=== PATIENT | female | born 1975 | race Two or more races ===

== ENCOUNTER 2017-03-11 14:04 | Emergency (ER) | payer OTHER ==
[~2017-03-11] VITALS: Ht 162.6 cm; Wt 72.6 kg
[2017-03-11] MEDS ORDERED: SODIUM CHLORIDE 0.9% 1,000 ML IVB ONE (14:21)
[2017-03-11] MEDS ORDERED: LORazepam 2MG/ML-1ML VIAL IV ONE (14:30)
[2017-03-11 15:03] LABS: Basophils # (auto) 0.1 uL; Basophils % (auto) 0.5 % (0.0-2.0); CONDITION AutoValidated; Eosinophils # (auto) 0.1 uL; Eosinophils % (auto) 0.5 % (0.0-7.0); Hematocrit 41.7 % (36.0-46.0); Hemoglobin 13.9 g/dL (12.2-16.2); Lymphocytes # (auto) 2.4 uL; Mean Corpuscular Hemoglobin 31.9 pg (28.0-32.0); Mean Corpuscular Hgb Conc. 33.5 g/dL (32.0-36.0); Mean Corpuscular Volume 95.4 fL (80.0-100.0); Mean Platelet Volume 8.6 fL (7.4-10.4); Monocytes # (auto) 0.4 uL; Monocytes % (auto) 3.8 % (0.0-12.0); Neutrophils # (auto) 6.9 uL; Neutrophils % (auto) 70.2 % (37.0-80.0); Platelet Count (auto) 307 10^3/uL (140-450); White Blood Cell 9.8 10^3/uL (4.4-10.8)
[2017-03-11] MEDS ORDERED: ONDANSETRON HCL 4 MG/2 ML VIAL IV ONE (15:15)
[2017-03-11 15:20] LABS: Acetaminophen < 2.0 ug/mL (10-30); Albumin 3.8 g/dL (3.4-5.0); BUN/Creatinine Ratio 18.3; Potassium 3.3 mmol/L (3.5-5.1); Salicylate < 1.7 mg/dL (2.8-20.0)
[2017-03-11 15:25] LABS: Bilirubin, Total 1.5 mg/dL (0.2-1.0); Total Protein 7.5 g/dL (6.4-8.2)
[2017-03-11 19:20] VITALS: BP 134/72
== END 2017-03-11 20:34 | disposition home or self-care (01) ==
LOC: EDBD 14:04 → ER 14:15
DX: F10.120 Alcohol abuse with intoxication, uncomplicated (principal); F41.9 Anxiety disorder, unspecified; F31.9 Bipolar disorder, unspecified
CPT/HCPCS: 36415; 80053; 80307; 80320; 80329; 85025; 94761; 96361; 96374; 96375; 99285; J2060; J2405; J7030

== ENCOUNTER 2017-04-15 19:56 | Emergency (ER) | payer OTHER ==
[~2017-04-15] VITALS: Ht 170.2 cm; Wt 77.1 kg
[2017-04-15 20:00] VITALS: BP 106/82
[2017-04-15 21:12] LABS: Basophils # (auto) 0 uL; Basophils % (auto) 0.7 % (0.0-2.0); CONDITION Y; Eosinophils # (auto) 0.1 uL; Eosinophils % (auto) 1.1 % (0.0-7.0); Hematocrit 44.5 % (36.0-46.0); Lymphocytes # (auto) 2.3 uL; Lymphocytes % (auto) 33.8 % (10.0-50.0); Mean Corpuscular Hemoglobin 31.7 pg (28.0-32.0); Mean Corpuscular Hgb Conc. 33.7 g/dL (32.0-36.0); Mean Corpuscular Volume 94.2 fL (80.0-100.0); Mean Platelet Volume 8.5 fL (7.4-10.4); Monocytes # (auto) 0.4 uL; Monocytes % (auto) 6.4 % (0.0-12.0); Neutrophils # (auto) 3.9 uL; Platelet Count (auto) 302 10^3/uL (140-450); Red Cell Distribution Width 14.9 % (11.6-16.0); White Blood Cell 6.7 10^3/uL (4.4-10.8)
[2017-04-15] MEDS ORDERED: SODIUM CHLORIDE 0.9% 1,000 ML IV ONE (21:30)
[2017-04-15 21:50] LABS: Calcium 8.1 mg/dL (8.5-10.1); Magnesium 2.3 mg/dL (1.6-2.6); Potassium 3.3 mmol/L (3.5-5.1)
[2017-04-15 21:52] LABS: BUN/Creatinine Ratio 15.4
[2017-04-15 21:54] LABS: Bilirubin, Total 1.5 mg/dL (0.2-1.0); Total Protein 7.7 g/dL (6.4-8.2)
[2017-04-15 22:12] LABS: Acetaminophen < 2.0 ug/mL (10-30); Salicylate < 1.7 mg/dL (2.8-20.0)
[2017-04-15 23:33] LABS: Urine Bilirubin Negative (Negative); Urine Blood 3+ /uL (Negative); Urine Color Yellow (Yellow); Urine Glucose Normal (Normal); Urine Ketone 1+ (Negative); Urine Mucus FEW (None Seen); Urine Nitrite Negative (Negative); Urine RBC 63 /hpf (0 - 4); Urine Squamous Epithelial Cell FEW /hpf (<5); Urine Urobilinogen Normal (Negative)
== END 2017-04-16 01:17 | disposition left against medical advice (07) ==
LOC: EDBD 19:56 → ER 20:03
DX: F10.129 Alcohol abuse with intoxication, unspecified (principal); R41.82 Altered mental status, unspecified; Y90.8 Blood alcohol level of 240 mg/100 ml or more
CPT/HCPCS: 36415; 80053; 80307; 80320; 80329; 81001; 83735; 84702; 85025; 93005

== ENCOUNTER 2018-07-26 21:45 | Emergency (ER) | payer OTHER ==
[~2018-07-26] VITALS: Ht 167.6 cm; Wt 4.3 kg
[2018-07-26 22:43] LABS: Basophils # (auto) 0.1 uL; Basophils % (auto) 0.9 % (0.0-2.0); Eosinophils # (auto) 0 uL; Eosinophils % (auto) 0.5 % (0.0-7.0); Hematocrit 39.5 % (36.0-46.0); Lymphocytes % (auto) 13.4 % (10.0-50.0); Mean Corpuscular Hemoglobin 32.9 pg (28.0-32.0); Mean Corpuscular Hgb Conc. 32.9 g/dL (32.0-36.0); Mean Corpuscular Volume 100.1 fL (80.0-100.0); Monocytes # (auto) 0.2 uL; Monocytes % (auto) 3.3 % (0.0-12.0); Neutrophils # (auto) 6.1 uL; Neutrophils % (auto) 81.9 % (37.0-80.0); Nucleated Red Blood Cells % 0.1 %; Platelet Count (auto) 257 10^3/uL (140-450); Red Blood Cells 3.95 10^6/uL (4.0-5.20); White Blood Cell 7.4 10^3/uL (4.4-10.8)
[2018-07-26 22:45] LABS: Albumin 3.8 g/dL (3.4-5.0); Calcium 8.4 mg/dL (8.5-10.1)
[2018-07-26] MEDS ORDERED: SODIUM CHLORIDE 0.9% 500 ML IV ONE (22:45)
[2018-07-26 22:49] LABS: Salicylate < 1.7 mg/dL (2.8-20.0)
[2018-07-26 22:57] LABS: Bilirubin, Total 1.4 mg/dL (0.2-1.0); Total Protein 7.7 g/dL (6.4-8.2)
[2018-07-26 23:07] LABS: Acetaminophen < 2.0 ug/mL (10-30)
[2018-07-26 23:12] LABS: Potassium 2.9 mmol/L (3.5-5.1)
[2018-07-26 23:14] LABS: BUN/Creatinine Ratio 14.8
[2018-07-26] MEDS ORDERED: POTASSIUM CHL 20 Meq TABLET PO ONE (23:15)
[2018-07-27] MEDS ORDERED: THIAMINE INJ 100 MG, MULTIPLE VITAMIN 10 ML, FOLIC ACID 1 MG, MAGNESIUM SULF SDV 50% 8 ... IV ONE ×5 (00:45)
[2018-07-27] MEDS ORDERED: MVI in SODIUM CHLORIDE 0.9% 1,010 ML ONE (00:50)
[2018-07-27 03:30] VITALS: BP 150/89
== END 2018-07-27 03:52 | disposition home or self-care (01) ==
LOC: EDBD 21:45 → ER 21:57
DX: G92 Toxic encephalopathy (principal); F10.920 Alcohol use, unspecified with intoxication, uncomplicated; Y90.0 Blood alcohol level of less than 20 mg/100 ml
CPT/HCPCS: 36415; 80053; 80320; 80329; 82962; 85025; 94761; 96365; 96366; 99283; J3411; J3475; J7030